=== PATIENT | female | born 1965 | race Caucasian/White ===

== ENCOUNTER 2018-08-21 15:22 | Emergency (ER) | payer OTHER ==
[~2018-08-21] VITALS: Ht 160 cm; Wt 86.2 kg
[2018-08-21] MEDS ORDERED: SYNTHROID175 MCG (15:43)
[2018-08-21] MEDS ORDERED: FORTAMET500 MG (15:44)
== END 2018-08-21 22:29 | disposition home or self-care (01) ==
LOC: ER 15:22
DX: R10.31 Right lower quadrant pain (principal)